=== PATIENT | female | born 1955 | race African-American/Black ===

== ENCOUNTER 2017-04-05 14:08 | Emergency (ER) | payer OTHER | END 2017-04-05 14:41 | disposition left against medical advice (07) | LOC: SCSER 14:08 | DX: Z53.21 Procedure and treatment not carried out due to patient leaving prior to being seen by health care provider (principal) ==

== ENCOUNTER 2017-05-07 15:47 | Emergency (ER) | payer OTHER ==
[2017-05-07] MEDS ORDERED: Promethazine HCl 25 MG/ML VIAL ONE (17:02)
[2017-05-07] MEDS ORDERED: Ibuprofen 800 MG TAB ONE (17:02)
[2017-05-07] MEDS ORDERED: Dexamethasone 10 MG/ML VIAL ONE (17:02)
[2017-05-07] MEDS ORDERED: Morphine 10 MG/ML VIAL ONE (17:02)
== END 2017-05-07 17:38 | disposition home or self-care (01) ==
LOC: SCSER 15:47
DX: M54.41 Lumbago with sciatica, right side (principal); M06.9 Rheumatoid arthritis, unspecified; K21.9 Gastro-esophageal reflux disease without esophagitis; J45.909 Unspecified asthma, uncomplicated; I10 Essential (primary) hypertension; F32.9 Major depressive disorder, single episode, unspecified; F17.210 Nicotine dependence, cigarettes, uncomplicated; Z79.899 Other long term (current) drug therapy; Z79.82 Long term (current) use of aspirin; V43.92XA Unspecified car occupant injured in collision with other type car in traffic accident, initial encounter
CPT/HCPCS: 96372; J1100; J2270; J2550

== ENCOUNTER 2017-08-08 16:05 | Emergency (ER) | payer OTHER ==
--- NOTE | 2017-08-08 17:14 | RAD ---
THREE VIEWS LUMBAR SPINE 08/08/17 HISTORY: Right lower back pain radiating to right hip and down side of leg. Symptoms have been present for thr ee years. FINDINGS: There are five nonribbearing lumbar type vertebral bodies. The vertebral body heights and interverteb ral disc spaces are within normal limits. Facet degenerative changes are seen at the L5-S1 level. No fracture or subluxation seen. Vascular calcifications seen in the abdominal aorta and iliac arteries. IMPRESSION: Degenerative changes lower lumbar spine, but no fracture or subluxation is seen. Given patient's neur ologic deficit, MRI lumbar spine may be helpful for further evaluation. POS: JENNIFER
--- NOTE | 2017-08-08 17:15 | RAD ---
TWO VIEWS RIGHT HIP 08/08/17 HISTORY: Right lower back pain that radiates to right hip. FINDINGS: There is mild right hip osteoarthritis with osteophytes present. No fracture or dislocation is seen. Phleboliths overlies the lower left hemipelvis. No other findings. IMPRESSION: Mild right hip osteoarthritis. POS: RADHA
== END 2017-08-08 18:00 | disposition home or self-care (01) ==
LOC: SCSER 16:05
DX: M54.5 Low back pain (principal); G89.29 Other chronic pain; M25.551 Pain in right hip; K21.9 Gastro-esophageal reflux disease without esophagitis; I10 Essential (primary) hypertension; F32.9 Major depressive disorder, single episode, unspecified; F17.210 Nicotine dependence, cigarettes, uncomplicated; Z79.899 Other long term (current) drug therapy; Z79.82 Long term (current) use of aspirin
CPT/HCPCS: 72100

== ENCOUNTER 2017-10-09 09:02 | Outpatient (CLI) | payer OTHER ==
--- NOTE | 2017-10-11 14:02 | MMO ---
BILATERAL DIGITAL SCREENING MAMMOGRAMS: Date: 10/09/17 HISTORY: 62-year-old female presents for digital screening mammogram. COMPARISON: 08/02/15, 03/18/13. FINDINGS: This patient's mammogram was interpreted with the assistance of computer-aided detection. The breasts are heterogeneously dense, which can obscure small masses. There are stable appearing typ ically benign calcification. No direct or indirect evidence of malignancy. IMPRESSION: BIRADS 2: Benign Finding(s) Continue routine screening. POS: JENNIFER
== END 2017-10-09 09:03 | disposition home or self-care (01) ==
LOC: SCSMAMMO 09:02
PROVIDERS: ATTEND Family Medicine
DX: Z12.31 Encounter for screening mammogram for malignant neoplasm of breast (principal)
CPT/HCPCS: 77067

== ENCOUNTER 2017-10-27 11:43 | Emergency (ER) | payer OTHER ==
[2017-10-27 12:32] LABS: Bilirubin Negative (Negative); Blood, Urine Negative (Negative); Clarity Clear (Clear); Glucose, Urine (Dipstick) Negative (Negative); Leukocyte Negative (Negative); Nitrite Negative (Negative); Protein, Urine (Dipstick) Negative (Neg-Trace); Specific Gravity, Urine 1.025 (1.005-1.030)
[2017-10-30 23:28] LABS: Chlamydia by PCR Not Detected (NotDetected); GC by PCR Not Detected (NotDetected)
== END 2017-10-27 14:04 | disposition home or self-care (01) ==
LOC: SCSER 11:43
DX: G89.29 Other chronic pain (principal); M25.551 Pain in right hip; Z20.2 Contact with and (suspected) exposure to infections with a predominantly sexual mode of transmission; K21.9 Gastro-esophageal reflux disease without esophagitis; J45.909 Unspecified asthma, uncomplicated; F32.9 Major depressive disorder, single episode, unspecified; I10 Essential (primary) hypertension; F17.210 Nicotine dependence, cigarettes, uncomplicated; Z79.899 Other long term (current) drug therapy; Z79.82 Long term (current) use of aspirin
CPT/HCPCS: 81003; 87480; 87491; 87510; 87591; 87660; 99283

== ENCOUNTER 2018-06-19 14:19 | Emergency (ER) | payer OTHER | END 2018-06-19 17:41 | disposition home or self-care (01) | LOC: SCSER 14:19 | DX: M54.31 Sciatica, right side (principal); G89.29 Other chronic pain; M54.5 Low back pain; K21.9 Gastro-esophageal reflux disease without esophagitis; J45.909 Unspecified asthma, uncomplicated; I10 Essential (primary) hypertension; F32.9 Major depressive disorder, single episode, unspecified; Z79.51 Long term (current) use of inhaled steroids; Z79.899 Other long term (current) drug therapy; Z79.82 Long term (current) use of aspirin | CPT/HCPCS: 99283 ==

== ENCOUNTER 2018-11-07 11:02 | Outpatient (CLI) | payer OTHER ==
--- NOTE | 2018-11-07 11:34 | MMO ---
Bilateral MAMMO Bilat Screen DDI. CLINICAL HISTORY: Patient is 63 years old and is seen for screening. The patient has the following family history of breast cancer: sister, at age 40. The patient has no personal history of cancer. VIEWS: The views performed were: bilateral craniocaudal and bilateral mediolateral oblique. FILMS COMPARED: The present examination has been compared to prior imaging studies performed at [facility] on 12/10/2009 and 08/02/2015, and at [facility] on 12/03/2008. This study has been interpreted with the assistance of computer-aided detection. MAMMOGRAM FINDINGS: The breasts are heterogeneously dense, which could obscure a lesion on mammography. Finding 1: There is a focal asymmetry with associated calcifications with grouped or clustered distribution seen in the upper-inner region of the right breast. Finding 2: There are benign appearing calcifications seen in the left breast. IMPRESSION: FINDING 1: FOCAL ASYMMETRY IN THE RIGHT BREAST REQUIRES ADDITIONAL EVALUATION. RECOMMEND DIAGNOSTIC MAMMOGRAM. ULTRASOUND MAY ALSO PROVE USEFUL AT RECALL. ACR BI-RADS Category 0 - Incomplete: Need additional imaging evaluation. [facility] will notify the patient of the need for additional imaging services. MAMMOGRAPHY NOTE: 1. A negative mammogram report should not delay a biopsy if a dominant of clinically suspicious mass is present. 2. Approximately 10% to 15% of breast cancers are not detected by mammography. 3. Adenosis and dense breasts may obscure an underlying neoplasm.
== END 2018-11-07 11:03 | disposition home or self-care (01) ==
LOC: BICMAMMO 11:02
PROVIDERS: ATTEND Family Medicine
DX: Z12.31 Encounter for screening mammogram for malignant neoplasm of breast (principal); Z80.3 Family history of malignant neoplasm of breast; N64.89 Other specified disorders of breast
CPT/HCPCS: 77067

== ENCOUNTER 2018-11-14 12:59 | Outpatient (CLI) | payer OTHER ==
--- NOTE | 2018-11-15 07:38 | MMO ---
Right Breast MAMMO Unilat Diag DDI RT+PAT. CLINICAL HISTORY: Patient is 63 years old and is seen for diagnostic exam. VIEWS: The views performed were: . FILMS COMPARED: The present examination has been compared to prior imaging studies performed at [facility] on 12/10/2009, 08/02/2015 and 11/07/2018, and at [facility] on 12/03/2008. MAMMOGRAM FINDINGS: The breast is heterogeneously dense, which could obscure a lesion on mammography. There is a focal asymmetry seen in the upper-inner region of the right breast. Tomosynthesis compression images show the abnormality to represent superimpostion of normal breast parenchyma. There are no suspicious masses, suspicious calcifications, or new areas of architectural distortion. IMPRESSION: THERE IS NO MAMMOGRAPHIC EVIDENCE OF MALIGNANCY. A ROUTINE FOLLOW-UP MAMMOGRAM IN 1 YEAR IS RECOMMENDED. THE RESULTS OF THIS EXAM WERE SENT TO THE PATIENT. ACR BI-RADS Category 2 - Benign finding MAMMOGRAPHY NOTE: 1. A negative mammogram report should not delay a biopsy if a dominant of clinically suspicious mass is present. 2. Approximately 10% to 15% of breast cancers are not detected by mammography. 3. Adenosis and dense breasts may obscure an underlying neoplasm.
== END 2018-11-14 13:00 | disposition home or self-care (01) ==
LOC: BICMAMMO 12:59
PROVIDERS: ATTEND Family Medicine
DX: N64.89 Other specified disorders of breast (principal)
CPT/HCPCS: G0279

== ENCOUNTER 2019-10-10 12:56 | Outpatient (CLI) | payer OTHER ==
--- NOTE | 2019-10-10 14:13 | MMO ---
Bilateral MAMMO Bilat Diag DDI+PAT. CLINICAL HISTORY: Patient is 64 years old and is seen for diagnostic exam. The patient has the following family history of breast cancer: sister, at age 40 and 5 maternal aunts. The patient has no personal history of cancer. VIEWS: The views performed were: bilateral craniocaudal with tomosynthesis; bilateral mediolateral oblique with tomosynthesis; bilateral mediolateral with tomosynthesis; bilateral exaggerated craniocaudal; right craniocaudal spot compression magnification; and right mediolateral spot compression magnification. FILMS COMPARED: The present examination has been compared to prior imaging studies performed at [facility] on 08/02/2015, 11/07/2018, 11/14/2018 and 10/10/2019. This study has been interpreted with the assistance of computer-aided detection. MAMMOGRAM FINDINGS: The breasts are heterogeneously dense, which could obscure a lesion on mammography. No abnormality in left breast. Cluster of microcalcifications inner posterior right breast evaluated with mag views. Asymmetric cluster of microcalcifications noted Recommend steriotactic biopsy. In the left breast, there are no suspicious masses, calcifications or areas of architectural distortion. IMPRESSION: FINDING IN THE RIGHT BREAST IS SUSPICIOUS. BIOPSY IS RECOMMENDED. THE RESULTS OF THIS EXAM WERE SENT TO THE PATIENT. ACR BI-RADS Category 4 - Suspicious abnormality - biopsy should be considered MAMMOGRAPHY NOTE: 1. A negative mammogram report should not delay a biopsy if a dominant of clinically suspicious mass is present. 2. Approximately 10% to 15% of breast cancers are not detected by mammography. 3. Adenosis and dense breasts may obscure an underlying neoplasm. Reported by: CAROLINA SALAZAR MD Electonically Signed: [id number]
--- NOTE | 2019-10-10 15:13 | ULT ---
ULTRASOUND LEFT BREAST: Date: 10/10/2019 INDICATION: Ultrasound of the upper outer left breast performed to assess a palpable area of concern noted by the patient. No mammographic abnormality is seen in this region. FINDINGS: No sonographic abnormality identified. IMPRESSION: Ultrasound findings are BIRADS Category 1 - Negative.
== END 2019-10-10 12:57 | disposition home or self-care (01) ==
LOC: BICMAMMO 12:56
PROVIDERS: ATTEND Family Medicine
DX: N63.20 Unspecified lump in the left breast, unspecified quadrant (principal); R22.32 Localized swelling, mass and lump, left upper limb
CPT/HCPCS: 77066; G0279

== ENCOUNTER → 2019-10-21 | Day surgery (SDC) | payer OTHER ==
--- NOTE | 2019-10-21 09:17 | MMO ---
RIGHT BREAST STEREOTATIC BIOPSY: HISTORY: Right breast calcifications. COMPARISON: 10/10/2019. FINDINGS: Successful right breast stereotactic biopsy. Calcifications are present in the biopsy sample. Post biopsy clip was placed. Post biopsy mammogram was performed. Clip position is appropriate. Previou sly noted calcifications are not evident. TECHNIQUE: Consent obtained to perform a right breast stereotactic biopsy. The patient was placed in a prone po sition on the biopsy table. The patient's breast was evaluated. Calcifications were identified. Th e breast was prepped and draped in a sterile fashion. 1% Lidocaine, buffered with sodium bicarbonate , was used for local anesthesia. A small skin michelle was made. Needle position was confirmed pre- and post-firing. Stereotactic biopsy was performed. A total of six 10-gauge core biopsy samples were o btained. Calcifications were present. A post biopsy clip was placed. The patient tolerated the pro cedure well. No immediate or post procedure complications. Post procedure mammogram demonstrates a surgical cavity with a biopsy clip that is slightly anterior to the surgical cavity on both projections. IMPRESSION: Successful right breast stereotactic biopsy. Final pathologic diagnosis pending. POS: JENNIFER
== END ==
LOC: MAMMO 06:56
PROVIDERS: ATTEND Family Medicine
PROC: 0H9T3ZX Drainage of Right Breast, Percutaneous Approach, Diagnostic (ICD-10-PCS; principal; 2019-10-21)
DX: N60.11 Diffuse cystic mastopathy of right breast (principal); R92.0 Mammographic microcalcification found on diagnostic imaging of breast
CPT/HCPCS: 19081; 76098; 88305

== ENCOUNTER 2020-05-10 09:51 | Outpatient (CLI) | payer OTHER ==
--- NOTE | 2020-05-10 10:35 | ULT ---
EXAM: US Breast Limited Lt DATE: 05/10/2020 12:00 AM INDICATION: Left breast pain COMPARISON: Diagnostic mammogram dated May 10, 2020 FINDING: No suspicious sonographic abnormality is seen within the region of pain in the left breast 11 and 12:00 positions. IMPRESSION:BI-RADS Category 2-benign. No suspicious sonographic abnormality is seen within the region of pain in the left breast. Patient was counseled on the findings prior to leaving [facility]. Negative imaging should never deter biopsy if findings on clinical exam are suspicious
--- NOTE | 2020-05-10 10:35 | MMO ---
Bilateral MAMMO Bilat Diag DDI+PAT. CLINICAL HISTORY: Patient is 64 years old and is seen for diagnostic exam. The patient has the following family history of breast cancer: sister, at age 40 and 5 maternal aunts. The patient has no personal history of cancer. VIEWS: The views performed were: bilateral craniocaudal with tomosynthesis; bilateral mediolateral oblique with tomosynthesis; and bilateral mediolateral with tomosynthesis. FILMS COMPARED: The present examination has been compared to prior imaging studies performed at [facility] on 10/10/2019, 10/21/2019 and 05/10/2020. This study has been interpreted with the assistance of computer-aided detection. MAMMOGRAM FINDINGS: The breasts are heterogeneously dense, which could obscure a lesion on mammography. Finding 1: There are benign appearing calcifications with associated biopsy clip seen in both breasts. Finding 2: There is no radiographic abnormality in the region of the focal pain in the left breast at 11 o'clock. No sonographic abnormality is seen in the region of pain. There are no suspicious masses, suspicious calcifications, or new areas of architectural distortion. IMPRESSION: FINDING 1: CALCIFICATIONS IN BOTH BREASTS ARE BENIGN. FINDING 2: AREA IN THE LEFT BREAST IS BENIGN. NEGATIVE IMAGING SHOULD NEVER DETER BIOPSY IF FINDINGS ON CLINICAL EXAM ARE SUSPICIOUS. THE PATIENT WAS INFORMED OF THE EXAM RESULTS. A ROUTINE FOLLOW-UP MAMMOGRAM IN 1 YEAR IS RECOMMENDED. THE RESULTS OF THIS EXAM WERE SENT TO THE PATIENT. ACR BI-RADS Category 2 - Benign finding MAMMOGRAPHY NOTE: 1. A negative mammogram report should not delay a biopsy if a dominant of clinically suspicious mass is present. 2. Approximately 10% to 15% of breast cancers are not detected by mammography. 3. Adenosis and dense breasts may obscure an underlying neoplasm. Reported by: EBONIE SUÁREZ MD Electonically Signed: [id number]
== END 2020-05-10 09:52 | disposition home or self-care (01) ==
LOC: BICMAMMO 09:51
PROVIDERS: ATTEND Family Medicine
DX: N63.20 Unspecified lump in the left breast, unspecified quadrant (principal); N63.10 Unspecified lump in the right breast, unspecified quadrant; R92.1 Mammographic calcification found on diagnostic imaging of breast
CPT/HCPCS: 77066; G0279

== ENCOUNTER 2023-07-24 13:18 | Outpatient (CLI) | payer OTHER, MEDICAID | END 2023-07-24 13:19 | disposition home or self-care (01) | LOC: SCSMRI 13:18 | PROVIDERS: ATTEND Internal Medicine | DX: C34.12 Malignant neoplasm of upper lobe, left bronchus or lung (principal) | CPT/HCPCS: 70553; 78815; A9552 ==

== ENCOUNTER 2023-08-17 12:09 | Day surgery (SDC) | payer OTHER, MEDICAID ==
[2023-08-16 09:23] VITALS: BMI 17.9
[2023-08-17] MEDS ORDERED: PROPOFOL 20 ML ONE ×2 (13:06→15:06)
[2023-08-17] MEDS ORDERED: fentaNYL PF 100 MCG/2 ML SYRINGE ONE (13:06)
[2023-08-17] MEDS ORDERED: Lidocaine 1% PF 5 ML VIAL ONE (13:06)
[2023-08-17] MEDS ORDERED: Lidocaine 4% PF 5 ML AMP ONE (13:26)
[2023-08-17] MEDS ORDERED: PROPOFOL 40 ML ONE (13:34)
[2023-08-17] MEDS ORDERED: Ipratropium/Albuterol 3 ML NEB ONE (13:36)
[2023-08-17] MEDS ORDERED: Phenylephrine 10 MG/ML VIAL ONE (14:16)
[2023-08-17] MEDS ORDERED: NEOSTIGMINE 3 MG/3 ML SYR 3 MG/3 ML SYRINGE ONE (15:20)
[2023-08-17] MEDS ORDERED: Glycopyrrolate 0.2 MG/ML 5 ML SYRINGE ONE (15:20)
[2023-08-17] MEDS ORDERED: Dexamethasone 20 MG/5 ML VIAL ONE (15:24)
== END 2023-08-17 16:38 | disposition home or self-care (01) ==
LOC: SDC 12:09
PROVIDERS: ATTEND Internal Medicine
PROC: 0F9G8ZZ Drainage of Pancreas, Via Natural or Artificial Opening Endoscopic (ICD-10-PCS; principal; 2023-08-17)
DX: C34.90 Malignant neoplasm of unspecified part of unspecified bronchus or lung (principal); R91.8 Other nonspecific abnormal finding of lung field; I10 Essential (primary) hypertension; F31.9 Bipolar disorder, unspecified; R59.0 Localized enlarged lymph nodes; K21.9 Gastro-esophageal reflux disease without esophagitis; J45.909 Unspecified asthma, uncomplicated; Z90.710 Acquired absence of both cervix and uterus; Z98.890 Other specified postprocedural states; Z87.891 Personal history of nicotine dependence; Z79.899 Other long term (current) drug therapy
CPT/HCPCS: 88172; 88173; 88177; 88305; J1100; J2371; J2704; J7620

== ENCOUNTER 2023-11-14 15:10 | Outpatient (CLI) | payer OTHER, MEDICAID | END 2023-11-14 15:11 | disposition home or self-care (01) | LOC: RAD 15:10 | PROVIDERS: ATTEND Student in an Organized Health Care Education/Training Program | DX: C34.12 Malignant neoplasm of upper lobe, left bronchus or lung (principal); R91.8 Other nonspecific abnormal finding of lung field | CPT/HCPCS: 71046 ==

== ENCOUNTER 2023-11-27 09:28 | Emergency (ER) | payer OTHER, MEDICAID ==
[~2023-11-27 09:28] MED LIST: Iopamidol-370 76% 500 ML MDV (1 ML CHARGE) ONE
[2023-11-27] MEDS ORDERED: Morphine 4 MG/ML VIAL ONE (10:21)
[2023-11-27] MEDS ORDERED: Ondansetron PF 4 MG/2 ML Vial ONE (10:21)
[2023-11-27 10:50] LABS: #Basophils 0.03 10x3/uL (0.0-0.2); %Basophils 0.4 % (0.0-1.0); %Eosinophils 2.7 % (0.0-10.0); %Lymphocytes 34.3 % (21.0-51.0); %Monocytes 8.3 % (0.0-10.0); Hematocrit 40.4 % (36.0-47.0); Hemoglobin 13.8 g/dL (12.0-16.0); Mean Corpuscular HGB CONC 34.2 g/dL (32.0-36.0); Mean Corpuscular Hemoglobin 30.5 pg (27.0-31.0); Mean Corpuscular Volume 89.4 fL (78.0-98.0); Mean Platelet Volume 9.6 fL (7.4-10.4); Platelet Count 255 10x3/uL (130-400); RBC Distribution Width 12.4 % (11.5-14.5); Red Blood Cell (RBC) Count 4.52 mill/uL (4.20-5.40)
[2023-11-27 11:07] LABS: ALT (SGPT) 13 U/L (8-55); AST (SGOT) 25 U/L (5-34); Albumin 3.8 g/dL (3.4-4.8); Alkaline Phosphatase 81 U/L (40-110); Anion Gap 12 mmol/L (10-20); BUN (Urea Nitrogen) 9 mg/dL (9.8-20.1); Bilirubin, Total 0.4 mg/dL (0.2-1.2); Calc. Creatinine Clearance 0 mL/min (70-130); Calcium 10.3 mg/dL (7.8-10.44); Carbon Dioxide 25 mmol/L (23-31); Chloride 107 mmol/L (98-107); Estimated GFR 68; Globulin 3.5 g/dL (2.4-3.5); Glucose 95 mg/dL (80-115); Lipase 18 U/L (8-78); Magnesium 2.1 mg/dL (1.6-2.6); Protein, Total 7.3 g/dL (5.8-8.1); Sodium 140 mmol/L (136-145)
[2023-11-27 11:11] LABS: INR-International Normal Ratio 1.2; PTT 28.7 sec (22.9-36.1); Prothrombin Time 14.8 sec (12.0-14.7)
[2023-11-27 12:00] LABS: Troponin I Less than 0.010 ng/mL (< 0.028)
== END 2023-11-27 12:47 | disposition home or self-care (01) ==
LOC: ERS 09:28
DX: R07.9 Chest pain, unspecified (principal); R06.02 Shortness of breath; I10 Essential (primary) hypertension
CPT/HCPCS: 71045; 71275; 80053; 83690; 83735; 83880; 84484; 85025; 85610; 85730; 93005; 96374; 96375; 99285; J2270; J2405; 36415; Q9967

== ENCOUNTER 2024-03-04 08:38 | Outpatient (CLI) | payer OTHER, MEDICAID | END 2024-03-04 08:39 | disposition home or self-care (01) | LOC: SCSMRI 08:38 | PROVIDERS: ATTEND Otolaryngology | DX: H90.3 Sensorineural hearing loss, bilateral (principal); R90.82 White matter disease, unspecified; Z98.890 Other specified postprocedural states | CPT/HCPCS: 70553; 76376; 82565 ==